=== PATIENT | female | born 1965 | race Caucasian/White ===

== ENCOUNTER → 2024-02-02 10:14 | Outpatient (REF) | payer BC, SELFPAY ==
[2024-02-02 11:43] LABS: ALT (SGPT) 43 U/L (0-35); AST (SGOT) 43 U/L (14-36); Albumin 4.6 g/dl (3.5-5.0); Alkaline Phosphatase 99 U/L (38-126); Total Protein 6.8 g/dl (6.3-8.2)
== END ==
LOC: REG 10:14
PROVIDERS: ATTENDING PHYSICIAN Internal Medicine Gastroenterology
DX: K76.0 Fatty (change of) liver, not elsewhere classified (principal)
CPT/HCPCS: 36415; 80076

== ENCOUNTER → 2024-02-20 06:34 | Day surgery (SDC) | payer BC, SELFPAY ==
[2024-02-20 10:37] LABS: Glucose - Point of Care 197 mg/dl (70-99)
== END ==
LOC: GI 06:34
PROVIDERS: ATTENDING PHYSICIAN Internal Medicine Gastroenterology
DX: Z12.11 Encounter for screening for malignant neoplasm of colon (principal); K64.8 Other hemorrhoids; K22.89 Other specified disease of esophagus; K44.9 Diaphragmatic hernia without obstruction or gangrene; K31.89 Other diseases of stomach and duodenum; K21.9 Gastro-esophageal reflux disease without esophagitis; R10.9 Unspecified abdominal pain
CPT/HCPCS: 43239; G0105; 88305; 82962; 88342

== ENCOUNTER → 2024-03-30 13:00 | Outpatient (REF) | payer BC, SELFPAY | LOC: WDC 13:00 | PROVIDERS: ATTENDING PHYSICIAN Physician Assistant | DX: Z12.31 Encounter for screening mammogram for malignant neoplasm of breast (principal) | CPT/HCPCS: 77063; 77067 ==

== ENCOUNTER → 2024-05-22 09:41 | Outpatient (REF) | payer BC, SELFPAY ==
[2024-05-22 10:37] LABS: % Basophils 0.5 % (0-2); % Eosinophils 0.8 % (0-6); % Immature Granulocytes 0.3 % (0-0.5); % Lymphocytes 24.6 % (20.5-51.1); % Monocytes 5.3 % (1.7-9.3); % Neutrophils 68.5 % (42.2-75.2); Absolute Eosinophils 0.1 10^3/uL (0-0.7); Absolute Monocytes 0.4 10^3/uL (0.1-0.6); Absolute Neutrophils 5.4 10^3/uL (1.4-6.5); Hematocrit 39.7 % (37.0-47.0); Hemoglobin 14.1 g/dL (12.0-16.0); Mean Corp Hgb Conc. 35.5 g/dL (33.0-37.0); Mean Corpuscular Hgb 28.5 pg (27.0-31.0); Mean Corpuscular Volume 80.2 fL (81.0-99.0); Mean Platelet Volume 11.1 fL (7.4-10.4); Nucleated Red Blood Cells % 0 %; Platelet Count 148 10^3/uL (130-400); Red Blood Cell Count 4.95 10^6/uL (4.20-5.40); Red Cell Dist. Width 13.7 % (11.5-14.5); White Blood Cell Count 7.9 10^3/uL (4.8-10.8)
[2024-05-22 10:55] LABS: PT 14.2 Sec (11.4-14.6)
[2024-05-22 11:21] LABS: ALT (SGPT) 52 U/L (0-35); AST (SGOT) 51 U/L (14-36); Albumin 4.7 g/dl (3.5-5.0); Alkaline Phosphatase 113 U/L (38-126); Blood Urea Nitrogen 13 mg/dl (7-17); Carbon Dioxide 25 mmol/L (22-30); Chloride 107 mmol/L (98-107); Direct Bilirubin 0.3 mg/dl (0.0-0.4); Glucose 149 mg/dl (70-99); HDL Cholesterol 35 mg/dl; LDL Cholesterol, Calculated 74 mg/dl; Potassium 4.2 mmol/L (3.5-5.1); Sodium 142 mmol/L (135-145); Total Bilirubin 1.3 mg/dl (0.2-1.3); Total Cholesterol 144 mg/dl (50-199); Triglyceride 176 mg/dl (10-149); Very Low Density Lipoprotein 35 mg/dl (0-30); eGFR > 60.00
[2024-05-22 11:32] LABS: Free T4 1.24 ng/dl (0.78-2.19)
[2024-05-22 11:42] LABS: Glycohemoglobin (HgbA1c) 5.9 % (4.0-5.6)
[2024-05-22 11:43] LABS: Microalbumin, Random Urine 3.6 mg/dl (0.6-1.7); Microalbumin/creatinine Ratio 30.2 mg/g
[2024-05-22 11:46] LABS: TSH 2.34 uIU/ml (0.47-4.68)
[2024-05-22 11:48] LABS: AFP Male/Tumor Marker 3.41 ng/ml
== END ==
LOC: REG 09:41
PROVIDERS: ATTENDING PHYSICIAN Internal Medicine Gastroenterology; FAMILY PHYSICIAN Physician Assistant; REFERRING PHYSICIAN Internal Medicine Endocrinology, Diabetes & Metabolism
DX: E78.2 Mixed hyperlipidemia (principal); E03.9 Hypothyroidism, unspecified; E11.65 Type 2 diabetes mellitus with hyperglycemia; K76.0 Fatty (change of) liver, not elsewhere classified
CPT/HCPCS: 36415; 80053; 80061; 82043; 82105; 82248; 82570; 83036; 84439; 84443; 85025; 85610

== ENCOUNTER → 2025-05-05 09:29 | Outpatient (REF) | payer BC, SELFPAY ==
[2025-05-05 11:25] LABS: ALT (SGPT) 23 U/L (0-35); AST (SGOT) 22 U/L (14-36); Albumin 4.6 g/dl (3.5-5.0); Alkaline Phosphatase 69 U/L (38-126); Blood Urea Nitrogen 16 mg/dl (7-17); Calcium 10.1 mg/dl (8.4-10.2); Carbon Dioxide 25 mmol/L (22-30); Chloride 111 mmol/L (98-107); Glucose 106 mg/dl (70-99); HDL Cholesterol 44 mg/dl; LDL Cholesterol, Calculated 144 mg/dl; Potassium 4.3 mmol/L (3.5-5.1); Sodium 145 mmol/L (135-145); Total Cholesterol 227 mg/dl (50-199); Total Protein 6.8 g/dl (6.3-8.2); Triglyceride 195 mg/dl (10-149); Very Low Density Lipoprotein 39 mg/dl (0-30); eGFR > 60.00
[2025-05-05 22:20] LABS: Hepatitis C Antibody Negative (Negative)
== END ==
LOC: REG 09:29
PROVIDERS: ATTENDING PHYSICIAN Family Medicine
DX: Z79.4 Long term (current) use of insulin (principal); E78.5 Hyperlipidemia, unspecified; Z13.9 Encounter for screening, unspecified
CPT/HCPCS: 36415; 80053; 80061; 83036; 86803

== ENCOUNTER → 2025-05-13 17:32 | Outpatient (REF) | payer BC, SELFPAY | LOC: WDC 17:32 | PROVIDERS: ATTENDING PHYSICIAN Family Medicine | DX: Z12.31 Encounter for screening mammogram for malignant neoplasm of breast (principal) | CPT/HCPCS: 77063; 77067 ==

== ENCOUNTER → 2025-09-23 08:55 | Outpatient (REF) | payer BC, SELFPAY ==
[2025-09-23 09:41] LABS: INR 1.05; PT 14.0 Sec (11.4-14.6)
[2025-09-23 10:06] LABS: ALT (SGPT) 24 U/L (0-35); AST (SGOT) 22 U/L (14-36); Albumin 4.5 g/dl (3.5-5.0); Alkaline Phosphatase 63 U/L (38-126); Blood Urea Nitrogen 19 mg/dl (7-17); Calcium 9.6 mg/dl (8.4-10.2); Carbon Dioxide 27 mmol/L (22-30); Chloride 106 mmol/L (98-107); Glucose 102 mg/dl (70-99); HDL Cholesterol 44 mg/dl; LDL Cholesterol, Calculated 105 mg/dl; Potassium 4.3 mmol/L (3.5-5.1); Sodium 142 mmol/L (135-145); Total Protein 6.8 g/dl (6.3-8.2); Very Low Density Lipoprotein 26 mg/dl (0-30); eGFR > 60.00
[2025-09-23 10:38] LABS: Glycohemoglobin (HgbA1c) 4.7 % (4.0-5.9)
== END ==
LOC: REG 08:55
PROVIDERS: ATTENDING PHYSICIAN Internal Medicine Endocrinology, Diabetes & Metabolism; FAMILY PHYSICIAN Family Medicine
DX: E78.5 Hyperlipidemia, unspecified (principal); E11.65 Type 2 diabetes mellitus with hyperglycemia; Z96.41 Presence of insulin pump (external) (internal); Z79.4 Long term (current) use of insulin; E03.9 Hypothyroidism, unspecified; R80.9 Proteinuria, unspecified; E04.1 Nontoxic single thyroid nodule; E78.2 Mixed hyperlipidemia; Z68.35 Body mass index [BMI] 35.0-35.9, adult
CPT/HCPCS: 36415; 80053; 80061; 83036; 84439; 84443; 85610